=== PATIENT | male | born 1945 | race Caucasian/White ===

== ENCOUNTER 2016-07-19 23:59 | Inpatient (IN) | payer MEDICARE, BC ==
--- NOTE | ~2016-07-19 | HP ---
Unit #: [id number] #: [id number] Patient: MATILDE POST [id number] [address] [address] [id number] I MR#: [id number] NAME: MATILDE POST ROOM: 75254 Age: 71 Sex: M Admission Date: 07/20/2016 : 1945 Attending Physician: Kassandra Oliveros M.D. Primary Care Physician: No Primary Care Physician HISTORY AND PHYSICAL Of note, patient is usually admitted to this facility under the number of [id number]. HISTORY This 71-year-old male with COPD, PAF, chronic pain, and CAD is admitted for COPD exacerbation, suspected pneumonia, and sepsis. Patient states that two weeks ago he developed increasing shortness of breath with a cough productive of white sputum along with wheezing, fever, sweats, and chills. Apparently, he was quite confused yesterday and neighbors found him confused. He was brought to this emergency department late last evening extremely confused with a temperature of 102 degrees. He sounded quite congested on exam although chest x-ray does not show a definite pneumonia. He was treated with Solu-Medrol, Zosyn, vancomycin, tobramycin, and given 2 liters of saline along with Tylenol. Patient now is much more awake and alert. Of note, he does take high-dose morphine and currently is asking for pain medicine as he feels as if he is going through withdrawal. It is unsure when he was last admitted to a hospital. PAST MEDICAL HISTORY 1. Paroxysmal atrial fibrillation, chronically anticoagulated. 2. Chronic pain secondary to DJD and spinal stenosis on high-dose morphine followed by Dr. Rodgers. 3. Chronic lymphedema. 4. CAD, status post PTCA of the RCA 2003. Last echo revealed an ejection fraction of 55% to 60% with mild MR, right ventricular systolic pressures of 30-40 mmHg. Patient has a history of diastolic dysfunction. 5. B12 deficiency. 6. Admission 02/2015 for respiratory failure secondary to benzo overdose resulting in aspiration pneumonia. 7. AODM. 8. COPD on 2 liters of oxygen. 9. Obstructive sleep apnea on CPAP. 10. Polyps in the colon, which was snared. 11. EGD, 12/2012, revealing gastritis, mild duodenitis, and mild GERD with erosions at the gastroesophageal junction. 12. Cholecystectomy. 13. Appendectomy. ALLERGIES Latex. MEDICATIONS Unit #: [id number] #: [id number] Patient: MATILDE POST Home medications appear to be multiple. We are just getting a list back from the patient's pharmacy. FAMILY HISTORY CAD. SOCIAL HISTORY The patient lives alone. He stopped smoking 2 1/2 years ago. Does not drink alcohol. REVIEW OF SYSTEMS Notable for confusion, chronic pain, cough, fever, sweats, chills, shortness of breath, bronchospasm, PAF, CAD, COPD, chronic lymphedema, B12 deficiency, diabetes, polyps, gastritis, and above-mentioned surgeries. All other systems were reviewed and are otherwise negative. PHYSICAL EXAMINATION GENERAL APPEARANCE: Uncomfortable appearing, obese, 71-year-old male. VITAL SIGNS: Temperature 102, pulse 94, respirations 16, blood pressure 154/76, and O2 saturation currently is 96% on oxygen. HEENT: Eyes: PERRLA. Extraocular muscles are intact. Pharynx: Dry mucosal membranes. Poor dentition. NECK: Supple without adenopathy or thyromegaly. CHEST: Reveals rhonchi mainly. CARDIAC: Normal S1 and S2 without definite murmur. ABDOMEN: Bowels sounds are present. No hepatosplenomegaly, tenderness, or masses. EXTREMITIES: Dressings on both lower extremities distally. NEUROLOGIC: Patient is awake, alert, and oriented. His cranial nerves are intact. He has equal strength throughout except that he is weak in the left leg. DIAGNOSTIC STUDIES LABORATORY: Hematocrit 39.2, white blood count 19.1, and normal platelet count. SMA-12: Glucose 194, potassium 3.1, and alk phos 104. Lactic acid 2.4. Normal BNP. INR is 1.7. Cardiac markers are negative. Flu serology negative. Urinalysis is negative. IMAGING: Chest x-ray mainly notable for atelectasis. Head CT: No acute disease. Atrophy, small vessel ischemic disease, and sinus disease noted. CARDIOVASCULAR: EKG: Sinus rhythm with PACs, rate 95, and right bundle branch block. ASSESSMENT 1. Suspected pneumonia and sepsis with acute on chronic hypoxic respiratory failure. Of note, an ABG was drawn: pH 7.43, pCO2 40, pO2 131, and O2 saturation 99% on FIO2 of 50%. 2. COPD with exacerbation. 3. Confusion, likely related to toxic metabolic encephalopathy from current infection and medications. Patient is improved in terms of his mental status. 4. Paroxysmal atrial fibrillation anticoagulated, currently in a normal sinus rhythm. 5. Chronic pain on very high doses of narcotics. 6. Essential hypertension. Unit #: [id number] #: [id number] Patient: MATILDE POST 7. Obstructive sleep apnea. 8. AODM. 9. Gastritis. 10. Chronic lymphedema. 11. Hypokalemia. PLANS 1. Levaquin and Zosyn for now and will ask for a PA and lateral chest x-ray in the morning. Will write for steroids, DuoNeb, and Symbicort. 2. IV fluids. 3. Decrease pain medicines while acutely ill. 4. Verify home medicines. 5. Daily PT and INR. 6. Replace potassium and check magnesium. 7. Urine tox screen. 8. Further workup depending on above. Dictated by Kassandra Oliveros M.D. MARIKA/sacha TD: 07/20/2016 05:05 JOB #: [id number] HISTORY AND PHYSICAL Page 1 of 1 X Kassandra Oliveros MD X HISTORY AND PHYSICAL
--- NOTE | ~2016-07-19 | DS ---
Unit #: [id number] #: [id number] Patient: MATILDE POST [id number] [address] [place], [place] [address] [id number] I MR#: [id number] NAME: MATILDE POST ROOM: 339 Age: 71 Sex: M Admission Date: 07/20/2016 : 1945 Discharge Date: 07/22/2016 Attending Physician: Breana Goodwin M.D. DISCHARGE SUMMARY REASON FOR ADMISSION Acute respiratory failure. HISTORY OF PRESENT ILLNESS/HOSPITAL COURSE The patient is a 71-year-old male with underlying history of end-stage COPD on home O2, paroxysmal atrial fibrillation, chronic pain syndrome, coronary artery disease, who was admitted secondary to presumed pneumonia, acute respiratory failure as well as mental status change. Please see H and P for complete details. Through hospital course, the patient received IV Solu-Medrol, aerosol, as well as antibiotics in regard to his COPD exacerbation. He has shown improvement overall in his respiratory status. He has now returned back to his baseline 2 L via O2 nasal cannula. He states to me that he is not always the most compliant with his oxygen. He feels though he only uses oxygen whenever he feels as though he needs it. I reinforced with him that this is recommended to be 24/7. Initial chest x-ray raised the possibility of community-acquired pneumonia, however, given his clinical picture we performed a CT chest with noncontrast which only revealed atelectasis but no acute infiltrate was seen, therefore, his antibiotics IV were deescalated into p.o. He does have underlying history of chronic pain syndrome to which he takes morphine sulfate ER t.i.d. as well as morphine sulfate immediate release t.i.d. for breakthrough pain. His mental status change was felt to be secondary to polypharmacy. When I approach him in regard to the same and recommended that he consider decreasing these medications and/or discussing with his pain management physician about trying to change and/or de-escalate these medications. He became very agitated. He stated that he required them for his daily functioning and regardless of the recommendations that were made at time of discharge, he would revert back to his home dosage. At this point in time, he is otherwise clinically stable for discharge. As mentioned above, he is at baseline O2. He will be given prescriptions for Augmentin, prednisone, as well as Daliresp. At the time of discharge, he will be reverted back to his home medications. Recommendation once again has been made for him to be weaned off and/or medications including morphine to be reduced but I will defer that discussion between him and his pain management physician at the time of discharge. Unit #: [id number] #: [id number] Patient: MATILDE POST FINAL DISCHARGE DIAGNOSES 1. Acute hypoxic respiratory failure on baseline chronic respiratory failure, now improved. 2. End-stage chronic obstructive pulmonary disease, on home O2. 3. Obstructive sleep apnea with longstanding history of noncompliance. 4. Morbid obesity. 5. Chronic pain syndrome. 6. Opioid dependence. 7. Mental status change/temporary encephalopathy seen on admission likely secondary to polypharmacy and/or narcotic dependence. 8. Diabetes type 2 with hemoglobin A1c 7.7%. 9. Paroxysmal atrial fibrillation, on chronic anticoagulation with Coumadin. 10. Peripheral neuropathy likely secondary to poorly controlled diabetes. 11. Hyperlipidemia. FINAL DISCHARGE MEDICATIONS Augmentin 875 mg p.o. b.i.d., Imdur 60 mg p.o. daily, Daliresp 500 mcg p.o. daily, morphine sulfate 15 mg p.o. t.i.d. p.r.n. breakthrough pain, morphine sulfate ER 60 mg p.o. q.8, Zestril 10 mg p.o. daily, hydralazine 25 mg p.o. q.8, Lipitor 40 mg p.o. q.h.s., Cardizem 30 mg p.o. q.8, Norvasc 10 mg p.o. daily, Xanax 0.5 mg p.o. t.i.d. Home medication; no new prescription given, Zyrtec 10 mg p.o. daily, Neurontin 400 mg p.o. b.i.d., Coumadin 5 mg p.o. daily first dose on 07/23/2016, prednisone 40 mg p.o. daily, ProAir HFA two puffs q.6 p.r.n., Symbicort 160/4.5 two puffs b.i.d. FOLLOWUP The patient is to follow up with PCP in 3 to 5 days for repeat PT/INR as well as routine hospital followup. Dictated by... Alexis Herrera/mamie TD: 07/23/2016 05:51 JOB #: [id number] DISCHARGE SUMMARY Page 1 of 1 X Nasrin Jean Baptiste MD X DISCHARGE SUMMARY
--- NOTE | ~2016-07-19 | CT57 ---
[facility] A Service of [facility] RADIOLOGY TEXT RESULTS PATIENT: MATILDE POST LOCATION: [facility] : [birth year] UNIT #: [id number] AGE: [address]: Breana Goodwin MD SEX: M ORDER DR: [id number] [facility] [address]. [place], [place] [address] [id number] I MR#: [id number] Acc #: [id number] NAME: MATILDE POST : 1945 SEX: M STUDY DATE/TIME: 07/21/2016 12:39 [facility]: [facility] STUDY DESCRIPTION: CT Chest Wo Cont Attending Physician: Breana Goodwin M.D. Ordering Physician: Breana Goodwin M.D. Primary Care Physician: Primary Care Physician No MEDICAL IMAGING REPORT This report is preliminary unless electronic signature is present EXAM CT chest INDICATION Sepsis and respiratory failure. Shortness of air and cough for [address] of the thorax without contrast. Coronal and sagittal reconstructions were obtained. This CT exam was performed with one or more of the following radiation dose reduction techniques: automatic exposure control, adjustment of mA and/or kV according to patient size, and iterative reconstruction. COMPARISON Chest radiograph dated 07/20/2016. CT chest dated 04/14/2010. FINDINGS The heart is mildly enlarged. No pericardial or pleural effusion. There is moderate coronary artery calcifications. The thoracic aorta is normal in caliber. There is an anterior paratracheal lymph node measuring 1.0 cm in short axis. There are some linear airspace opacities in the right lung base and the left lung base. This is most consistent with atelectasis. No dense consolidation. Central airways are patent. Limited images of the upper abdomen were obtained. There is no acute findings. IMPRESSION Mild linear airspace opacities in both lung bases most consistent with atelectasis. [facility] A Service of [facility] RADIOLOGY TEXT RESULTS PATIENT: MATILDE POST LOCATION: [facility] : [birth year] UNIT #: [id number] AGE: [address]: Breana Goodwin MD SEX: M ORDER DR: Dictated by... Alexei Brower M.D. THIS IS AN ELECTRONICALLY VERIFIED REPORT Alxeei Brower M.D. at 07/22/2016 10:44 AM Geeta TD: 07/22/2016 09:20 JOB #: [id number] MEDICAL IMAGING REPORT Page 1 of 1 COPY
--- NOTE | ~2016-07-19 | EKG ---
PATIENT: MATILDE POST UNIT #: [id number] Ventricular Rate: 95 BPM Atrial Rate: 95 BPM P-R Interval: 208 ms QRS Duration: 150 ms Q-T Interval: 382 ms QTC Calculation(Bezet): 480 ms P Jackson: 57 degrees Calculated R Jackson: 0 degrees Calculated T Jackson: 18 degrees Diagnosis Line: Sinus rhythm with Premature atrial complexes Diagnosis Line: Right bundle branch block with repolarization Diagnosis Line: abnormality Cannot rule out Posterior infarct Diagnosis Line: Abnormal ECG Diagnosis Line: No previous ECGs available Diagnosis Line: Confirmed by JOVAN ECHOLS MD ([id number]) on 07/20/2016 Diagnosis Line: 4:38:14 PM INTERPRETING MD: KINZA YANG
--- NOTE | ~2016-07-19 | CT71 ---
[facility] A Service of [facility] RADIOLOGY TEXT RESULTS PATIENT: MATILDE POST LOCATION: [facility] 339-01 : [birth year] UNIT #: [id number] AGE: [address]: Breana Goodwin MD SEX: M ORDER DR: [id number] [id number] [facility]. [place], [place] [address] [id number] I MR#: [id number] Acc #: [id number] NAME: MATILDE POST : 1945 SEX: M STUDY DATE/TIME: 07/20/2016 0:22 UNIT: [facility] ROOM: 86582 STUDY DESCRIPTION: CT Head Wo Contrast Attending Physician: Breana Goodwin M.D. Ordering Physician: Noemi Hester M.D. Primary Care Physician: Primary Care Physician No MEDICAL IMAGING REPORT This report is preliminary unless electronic signature is present EXAM Head CT no contrast 07/20/2016 INDICATION Short of air for 3 days, cough for days, confusion, altered mental status, found down, alcohol on board. TECHNIQUE Noncontrast CT brain was performed. This CT examination was performed with one or more of the following radiation dose reduction techniques: automatic exposure control, adjustment of mA and/or kV according to patient size, and iterative reconstruction. COMPARISON None. FINDINGS There is motion degradation. Images were repeated. This was the best study possible. There is generalized atrophy. Sulci and ventricles otherwise unremarkable. No midline shift. No evidence of acute intracranial hemorrhage. There is no mass, mass effect or edema to suggest acute infarct and no extraaxial fluid collections are present. There is cerebellar atrophy slightly out of proportion to generalized cerebral atrophy and there are chronic ischemic changes in the periventricular white matter. Globes intact. Bones intact. There is chronic-appearing ethmoid and maxillary sinus disease. IMPRESSION 1. No clearly acute intracranial process. No evidence of acute intracranial hemorrhage. 2. Atrophy and chronic ischemic changes. 3. Multifocal sinus disease that appears chronic. [facility] A Service [facility] RADIOLOGY TEXT RESULTS PATIENT: MATILDE POST LOCATION: [facility] 339-01 : [birth year] UNIT #: [id number] AGE: [address]: Breana Goodwin MD SEX: M ORDER DR: Dictated by... Johnnie Salazar M.D. THIS IS AN ELECTRONICALLY VERIFIED REPORT Johnnie Salazar M.D. at 07/23/2016 9:12 AM AURA/sandoval TD: 07/20/2016 08:12 JOB #: [id number] MEDICAL IMAGING REPORT Page 1 of 1 COPY
--- NOTE | ~2016-07-19 | CR72 ---
[facility] A Service of [facility] RADIOLOGY TEXT RESULTS PATIENT: MATILDE POST LOCATION: [facility] 339-01 : [birth year] UNIT #: [id number] AGE: [address]: Breana Goodwin MD SEX: M ORDER DR: [id number] [facility] [address] [facility]. [place], [place] [address] [id number] I MR#: [id number] Acc #: [id number] NAME: MATILDE POST : 1945 SEX: M STUDY DATE/TIME: 07/19/2016 21:30 [facility] [address]67 STUDY DESCRIPTION: CR Chest Single View Portable Attending Physician: Breana Goodwin M.D. Ordering Physician: Noemi Hester M.D. Primary Care Physician: Primary Care Physician No MEDICAL IMAGING REPORT This report is preliminary unless electronic signature is present EXAM Portable AP view of the chest. COMPARISON None. INDICATIONS 68-year-old male with dyspnea and hypoxia as well as weakness today. FINDINGS Exam is limited by low lung volumes and rightward patient rotation. No convincing evidence of pneumothorax. There are diffuse interstitial opacities throughout the lungs favoring bronchovascular crowding. However in the right lung base, there are more confluent opacities which again are actually favored to represent atelectasis. There may be small left pleural effusion. Alternately this could represent prominent breast and cardiac shadow. IMPRESSION 1. Low lung volumes with diffuse interstitial opacities throughout the lungs favoring bronchovascular crowding with more focal opacity seen in the right lung base favored to represent atelectasis. Clinical correlation recommended. 2. There is hazy attenuation over the left lateral lung base favored represent combination of cardiac and breast shadow. Small left pleural effusion cannot be excluded. Dictated by... Ty Bauer M.D. THIS IS AN ELECTRONICALLY VERIFIED REPORT Ty Bauer M.D. at 07/23/2016 8:06 PM [facility] A Service of [facility] RADIOLOGY TEXT RESULTS PATIENT: MATILDE POST LOCATION: [facility] 339-01 : [birth year] UNIT #: [id number] AGE: [address]: Breana Goodwin MD SEX: M ORDER DR: Miranda TD: 07/20/2016 07:04 JOB #: [id number] MEDICAL IMAGING REPORT Page 1 of 1 COPY
--- NOTE | ~2016-07-19 | BMI ---
[facility] Nutrition Therapy DATE: 07/21/16 Patient: DEBORAH SEJAL Physician: SHELBY Address: [address] Room/Bed: [address] [place] [address], Zip: [place] [address] Admit Date: 07/20/16 Date of : [birth year] Height: 5 10 Weight: 283 128.6 HIGH BMI NOTE: ANTHROPOMETRICS: HT: 70" WT: 127.2 KG BMI: 40.2 INTERVENTION: 1. HH/CC DIET RECOMMENDATIONS: 1. CONTINUE CURRENT DIET IN ORDER TO PROMOTE GRADUAL WEIGHT LOSS TOWARDS A HEALTHY BMI. Respectfully, SANDRA ABEBE RD, LD [facility] cc: client file
--- NOTE | ~2016-07-19 | CR63 ---
[facility] A Service of [facility] RADIOLOGY TEXT RESULTS PATIENT: MATILDE POST LOCATION: [facility] 339-01 : [birth year] UNIT #: [id number] AGE: [address]: Breana Goodwin MD SEX: M ORDER DR: [id number] [facility] [address] [facility]. [place], [place] [address] [id number] I MR#: [id number] Acc #: [id number] NAME: MATILDE POST : 1945 SEX: M STUDY DATE/TIME: 07/20/2016 7:54 UNIT: A U ROOM: [facility] STUDY DESCRIPTION: CR Chest 2 View Attending Physician: Breana Goodwin M.D. Ordering Physician: Kassandra Oliveros M.D. Primary Care Physician: Primary Care Physician No MEDICAL IMAGING REPORT This report is preliminary unless electronic signature is present EXAM Chest PA and lateral, 07/20/2016 HISTORY Cough, chest congestion and shortness of breath today with syncope. Benign essential hypertension and diabetes, COPD exacerbation. FINDINGS The cardiac and mediastinal structures are stable compared with 07/20/2016 at 03:41 a.m. There is poor inspiratory result with bibasilar atelectasis. Right arm approach PICC line is unchanged. The upper lungs are clear. There are no pleural effusions. IMPRESSION No active pulmonary disease. Dictated by... Zhou Weber M.D. THIS IS AN ELECTRONICALLY VERIFIED REPORT Zhou Weber M.D. at 07/20/2016 10:52 AM SILAS/josé miguel TD: 07/20/2016 10:05 JOB #: [id number] MEDICAL IMAGING REPORT Page 1 of 1 COPY
--- NOTE | ~2016-07-19 | CR72 ---
[facility] A Service of [facility] RADIOLOGY TEXT RESULTS PATIENT: MATILDE POST LOCATION: [place] [address]- : [birth year] UNIT #: [id number] AGE: [address]: Breana Goodwin MD SEX: M ORDER DR: [id number] [facility] [address] [facility]. [place], [place] [address] [id number] I MR#: [id number] Acc #: [id number] NAME: MATILDE POST : 1945 SEX: M STUDY DATE/TIME: 07/20/2016 3:41 [facility] STUDY DESCRIPTION: CR Chest Single View Portable Attending Physician: Breana Goodwin M.D. Ordering Physician: Kassandra Oliveros M.D. Primary Care Physician: Primary Care Physician No MEDICAL IMAGING REPORT This report is preliminary unless electronic signature is present EXAM Frontal chest 07/20/2016 INDICATION PICC line placement, sepsis, respiratory failure. TECHNIQUE Frontal chest compared with 07/19/2016. FINDINGS New right-sided PICC line tip at the distal SVC level. No pneumothorax. Cardiac silhouette borderline in size and stable. Lung volumes are low. Bibasilar atelectasis or infiltrates persist. Probable trace to small effusions. IMPRESSION 1. New right-sided PICC line tip at the distal SVC level. No pneumothorax. 2. No other significant interval change from 07/19/2016 at 2130 hours. Dictated by... Johnnie Salazar M.D. THIS IS AN ELECTRONICALLY VERIFIED REPORT Johnnie Salazar M.D. at 07/23/2016 9:13 AM AURA/sandoval TD: 07/20/2016 08:54 JOB #: [id number] MEDICAL IMAGING REPORT Page 1 of 1 COPY
[2016-07-19 21:20] LABS: ARTERIAL BLOOD GAS CARBOXY HB 0.2 %sat (0.0-9.0); ARTERIAL BLOOD GAS HCO3 26.7 mmol/L; ARTERIAL BLOOD GAS pH 7.433 (7.350-7.450)
[2016-07-19 21:21] LABS: ARTERIAL BLOOD GAS ALLEN TEST NORMAL; ARTERIAL BLOOD GAS ART SITE RIGHT RADIAL; ARTERIAL DRAW? YES
[2016-07-19 21:34] LABS: URINE SOURCE CLEAN CATCH
[2016-07-19 21:42] LABS: BASOPHIL# 0.1 X10e3 (0-0.3); BASOPHIL% 0.4 % (0-2.5); EOSINOPHIL# 0.1 X10e3 (0-0.7); EOSINOPHIL% 0.5 % (0.0-7.0); HEMATOCRIT 39.2 % (38.0-50.0); HEMOGLOBIN 12.8 gm/dL (13.0-16.0); LYMPHOCYTE% 5.2 % (17.0-45.0); MEAN CELL VOLUME 84.5 FL (83-96); MEAN CORPUSCULAR HEMOGLOBIN 27.6 PG (28-34); MEAN CORPUSCULAR HGB CONC 32.6 g/dL (30-36); MEAN PLATELET VOLUME 8.2 FL (6.5-11.5); MONOCYTE# 0.8 X10e3 (0-1.0); MONOCYTE% 4.1 % (3.0-12.0); NEUTROPHIL# 17.1 X10e3 (1.5-7.1); NEUTROPHIL% 89.8 % (40-75); PLATELET COUNT 389 X10e3 (140-420); RED BLOOD COUNT 4.64 X10e (3.90-5.60); RED CELL DISTRIBUTION WIDTH 15.2 % (11.0-15.5); WHITE BLOOD COUNT 19.1 X10e3 (4.0-10.5)
[2016-07-19 21:43] LABS: DIFF IND YES
[2016-07-19 21:45] LABS: URINE APPEARANCE CLEAR; URINE BILIRUBIN NEG (NEG); URINE BLOOD NEG (NEG); URINE COLOR YELLOW; URINE GLUCOSE NEG (NEG); URINE KETONE NEG (NEG); URINE LEUKOCYTE ESTERASE NEG (NEG); URINE NITRATE NEG (NEG); URINE PROTEIN NEG (NEG); URINE SPECIFIC GRAVITY 1.013 (1.003-1.035); URINE UROBILINOGEN 0.2 MG/DL (NEG)
[2016-07-19 21:45] LABS: POC - CKMB <1.0 ng/mL (0.0-7.9); POC - TROPONIN <0.05 ng/mL (<=0.05)
[2016-07-19 21:50] LABS: CULTURE INDICATED? NO
[2016-07-19 21:50] LABS: INR 1.7; PROTHROMBIN TIME (PATIENT) 18.6 SECONDS (9.6-11.5)
[2016-07-19 21:57] LABS: INFLUENZA A NEG (NEG); INFLUENZA B NEG (NEG)
[2016-07-19 22:05] LABS: BILIRUBIN, DIRECT 0.1 mg/dL (0.0-0.2); BILIRUBIN,INDIRECT 0.3 mg/dL (0.0-0.9); BILIRUBIN,TOTAL 0.4 mg/dL (0.2-2.0); CALCIUM SERUM 8.9 mg/dL (8.4-10.2); GLOM FILT RATE Estimated 77.5 mL/min (>60); POTASSIUM 3.1 mmol/L (3.5-5.1); PROTEIN TOTAL SERUM 7.9 g/dL (6.0-8.3)
[2016-07-19 22:08] LABS: PLATELET ESTIMATE NORMAL (NORMAL); SMUDGE CELLS 16 /100
[2016-07-19 22:09] LABS: RBC NORMAL YES
[2016-07-19 23:22] LABS: POC - CKMB <1.0 ng/mL (0.0-7.9); POC - TROPONIN <0.05 ng/mL (<=0.05)
[~2016-07-19 23:59] MED LIST: ADVAIR 250-501 EACH INH; ALPRAZOLAM PO; ALPRAZOLAM XR0.5 MG PO; AMLODIPINE BESYL5 MG PO; AMOXICILLIN875 MG PO; ANDROGEL2.5 GM TOP; ASPIRIN81 M2 PO; ASPIRIN81 MG PO; AUGMENTIN875 MG PO; AVINZA60 MG PO; BACTRIM DS TABL1 TA1 PO; BETAPACE PO; BETAPACE80 MG PO; CATAFLAM50 MG PO; CATAPRES0.1 MG PO; CIPRO PO; CLONIDINE HCL0.1 M1 PO; CLONIDINE HCL0.1 MG PO; CLONIDINE PO; COMBIVENT U/D3 M2 INH; COUMADIN10 MG PO; COUMADIN4 MG PO; COUMADIN5 MG PO; COUMADIN7.5 MG PO; CYANOCOBALAM1000 MCG PO; CYMBALTA PO; DARVOCET-N 1001 TAB PO; DEPAKOTE (UD)250 M1 PO; DIVALPROEX SOD500 M1 PO; DIVALPROEX SOD500 M2 PO; FENTANYL TOP; FLAGYL PO; FLORASTOR250 M1 PO; FUROSEMIDE40 MG PO; GABAPENTIN300 MG PO; GABAPENTIN400 M2 PO; GABAPENTIN400 MG PO; GLUCOPHAGE500 M1 PO; GLUCOPHAGE500 MG PO; HYDRALAZINE HCL25 MG PO; IMDUR-ER30 M1 PO; IMDUR-ER60 M1 PO; IMDUR-ER60 M3 PO; IPRAT-ALBUT 0.5-3 ML INH; K-DUR10 MEQ PO; K-DUR20 ME1 PO; KLONOPIN0.25 MG/TA PO; KRISTALOSE10 GM PO; LASIX20 MG PO; LEVAQUIN PO; LEVAQUIN750 M1 PO; LEVAQUIN750 MG PO; LISINOPRIL PO; LISINOPRIL-HCTZ1 T14 PO; LISINOPRIL-HCTZ1 T15 PO; LOPRESSOR PO; LOPRESSOR100 MG PO; METFORMIN HCL1000 M1 PO; METFORMIN HCL500 M1 PO; METFORMIN PO; METOPROLOL SUC100 MG PO; METOPROLOL SUCC25 MG PO; METOPROLOL SUCC50 MG PO; MIRALAX255 GM PO; MIRTAZAPINE45 MG PO; MORPHINE IR PO; MORPHINE SULFAT15 M1 PO; MORPHINE SULFAT15 MG PO; MORPHINE SULFAT60 M1 PO; MORPHINE SULFAT60 M3 PO; MORPHINE SULFAT60 M4 PO; MORPHINE SULFAT60 MG PO; MS CONTIN PO; MS CONTIN60 MG PO; NEXIUM PO; NITROGLYGERIN0.4 MG SL; NITROSTAT0.4 MG SL; NORVASC PO; NOVOLIN R100 UNITS/; OSPHENA60 MG PO; PANTOPRAZOLE SO40 MG PO; PERCOCET10 PO; PHENERGAN PO; PREDNISONE PO; PREDNISONE10 MG PO; PRINIVIL20 M1 PO; PROTONIX PO; REGLAN PO; SEROQUEL PO; SIMVASTATIN20 MG PO; SIMVASTATIN40 MG PO; SOTALOL AF80 M1 PO; SOTALOL120 MG PO; SOTALOL160 MG PO; SYMBICORT INH; TOPROL XL PO; TYLOX 5/500 CAP1 CAP PO; VIBRAMYCIN100 M1 IV; VIBRAMYCIN100 M1 PO; VITAMIN B122500 MCG PO; XANAX0.5 M1 PO; ZANTAC PO; ZESTORETIC 20/11 TAB PO; ZESTORETIC 20/21 TAB PO; ZIAGEN300 M1; ZOCOR PO
[2016-07-20] MEDS ORDERED: XANAX0.5 M1 PO (02:32)
[2016-07-20] MEDS ORDERED: AMLODIPINE BESY10 MG PO (02:33)
[2016-07-20] MEDS ORDERED: LIPITOR40 MG PO (02:34)
[2016-07-20] MEDS ORDERED: ALLERGY RELIEF10 M6 PO (02:35)
[2016-07-20] MEDS ORDERED: KLONOPIN0.5 MG PO (02:37)
[2016-07-20] MEDS ORDERED: DILTIAZEM HCL30 MG PO (02:38)
[2016-07-20] MEDS ORDERED: GABAPENTIN400 M2 PO (02:40)
[2016-07-20] MEDS ORDERED: HYDRALAZINE HCL25 MG PO (02:40)
[2016-07-20] MEDS ORDERED: PRINIVIL10 MG PO (02:42)
[2016-07-20] MEDS ORDERED: IMDUR-ER60 M2 PO (02:42)
[2016-07-20] MEDS ORDERED: MORPHINE SULFAT60 M1 PO (02:45)
[2016-07-20] MEDS ORDERED: PROAIR HFA8.5 GM INH (02:48)
[2016-07-20] MEDS ORDERED: MSIR15 MG PO (02:52)
[2016-07-20 06:01] LABS: AMPHETAMINE NEG (NEG); BARBITURATES NEG (NEG); BENZODIAZEPINES POS (NEG); COCAINE NEG (NEG); MARIJUANA NEG (NEG); OPIATES POS (NEG); TRICYCLIC ANTIDEPRESSANTS NEG (NEG); U METHADONE NEG (NEG)
[2016-07-20 10:53] LABS: BASOPHIL% 0.2 % (0-2.5); HEMATOCRIT 36.2 % (38.0-50.0); HEMOGLOBIN 11.3 gm/dL (13.0-16.0); LYMPHOCYTE# 1.3 X10e3 (1.0-3.5); LYMPHOCYTE% 4.6 % (17.0-45.0); MEAN CELL VOLUME 86.8 FL (83-96); MEAN CORPUSCULAR HEMOGLOBIN 27.1 PG (28-34); MEAN CORPUSCULAR HGB CONC 31.3 g/dL (30-36); MEAN PLATELET VOLUME 8.6 FL (6.5-11.5); MONOCYTE# 0.4 X10e3 (0-1.0); MONOCYTE% 1.2 % (3.0-12.0); NEUTROPHIL# 27.2 X10e3 (1.5-7.1); PLATELET COUNT 295 X10e3 (140-420); RED BLOOD COUNT 4.17 X10e (3.90-5.60); RED CELL DISTRIBUTION WIDTH 15.4 % (11.0-15.5)
[2016-07-20 10:54] LABS: DIFF IND NO
[2016-07-20 11:44] LABS: CALCIUM SERUM 8.2 mg/dL (8.4-10.2); CREATININE SERUM 0.9 mg/dL (0.6-1.4); GLOM FILT RATE Estimated 86.2 mL/min (>60); MAGNESIUM 1.6 mg/dL (1.6-3.0); POTASSIUM 3.2 mmol/L (3.5-5.1)
[2016-07-21 09:18] LABS: HEMATOCRIT 35.1 % (38.0-50.0); HEMOGLOBIN 11.1 gm/dL (13.0-16.0); MEAN CORPUSCULAR HEMOGLOBIN 27.2 PG (28-34); MEAN CORPUSCULAR HGB CONC 31.6 g/dL (30-36); MEAN PLATELET VOLUME 8.8 FL (6.5-11.5); RED BLOOD COUNT 4.07 X10e (3.90-5.60); RED CELL DISTRIBUTION WIDTH 15.5 % (11.0-15.5); WHITE BLOOD COUNT 29.4 X10e3 (4.0-10.5)
[2016-07-21 09:37] LABS: INR 3.2; PROTHROMBIN TIME (PATIENT) 35.1 SECONDS (9.6-11.5)
[2016-07-21 09:53] LABS: BUN/CREATININE RATIO 28.57; CALCIUM SERUM 9.2 mg/dL (8.4-10.2); CREATININE SERUM 0.7 mg/dL (0.6-1.4); GLOM FILT RATE Estimated 95.7 mL/min (>60); MAGNESIUM 1.8 mg/dL (1.6-3.0)
[2016-07-22 06:47] LABS: HEMATOCRIT 32.3 % (38.0-50.0); HEMOGLOBIN 10.3 gm/dL (13.0-16.0); MEAN CELL VOLUME 85.2 FL (83-96); MEAN CORPUSCULAR HEMOGLOBIN 27.2 PG (28-34); MEAN PLATELET VOLUME 8.6 FL (6.5-11.5); RED BLOOD COUNT 3.79 X10e (3.90-5.60); WHITE BLOOD COUNT 22.6 X10e3 (4.0-10.5)
[2016-07-22 06:54] LABS: INR 4.3; PROTHROMBIN TIME (PATIENT) 47.8 SECONDS (9.6-11.5)
[2016-07-22 07:16] LABS: BUN/CREATININE RATIO 27.5; CREATININE SERUM 0.8 mg/dL (0.6-1.4); GLOM FILT RATE Estimated 90.5 mL/min (>60); POTASSIUM 3.9 mmol/L (3.5-5.1)
[2016-07-22] MEDS ORDERED: PREDNISONE PO (13:04)
[2016-07-22] MEDS ORDERED: COUMADIN5 MG PO (13:06)
[2016-07-22] MEDS ORDERED: AUGMENTIN875 MG PO (13:08)
[2016-07-22] MEDS ORDERED: DALIRESP500 MCG PO (13:08)
[2016-07-22] MEDS ORDERED: AMARYL2 MG PO (13:08)
[2016-07-22] MEDS ORDERED: SYMBICORT INH (13:09)
== END 2016-07-22 14:09 | disposition home or self-care (01) | DRG 189 ==
LOC: CED 23:59 → CEDOF 07-20 01:30 → C3A PCU 07-20 09:38
PROVIDERS: Family Medicine; Internal Medicine; Student in an Organized Health Care Education/Training Program
PROC: 02HV33Z Insertion of Infusion Device into Superior Vena Cava, Percutaneous Approach (ICD-10-PCS; principal; 2016-07-20)
DX: J96.21 Acute and chronic respiratory failure with hypoxia (principal); G92 Toxic encephalopathy; Z99.81 Dependence on supplemental oxygen; E11.42 Type 2 diabetes mellitus with diabetic polyneuropathy; J44.1 Chronic obstructive pulmonary disease with (acute) exacerbation; F11.20 Opioid dependence, uncomplicated; J98.11 Atelectasis; I48.0 Paroxysmal atrial fibrillation; I25.10 Atherosclerotic heart disease of native coronary artery without angina pectoris; Z79.01 Long term (current) use of anticoagulants; Z98.61 Coronary angioplasty status; G47.33 Obstructive sleep apnea (adult) (pediatric); Z86.010 Personal history of colon polyps; Z90.49 Acquired absence of other specified parts of digestive tract; Z91.040 Latex allergy status; Z87.891 Personal history of nicotine dependence; K29.70 Gastritis, unspecified, without bleeding; I89.0 Lymphedema, not elsewhere classified; E87.6 Hypokalemia; M62.3 Immobility syndrome (paraplegic); G89.4 Chronic pain syndrome; Z91.14 Patient's other noncompliance with medication regimen; E66.01 Morbid (severe) obesity due to excess calories; E78.5 Hyperlipidemia, unspecified
CPT/HCPCS: 36415; 36600; 51702; 70450; 71010; 71020; 71250; 80048; 80076; 80307; 81003; 82553; 82803; 82947; 83036; 83605; 83735; 83880; 84484; 85025; 85027; 85610; 85730; 87040; 87070; 87205; 87804; 93005; 94640; 94660; 94664; 94760; 94761; 96361; 96365; 96375; 97116; 97162; 99285; G8978-GP; G8979-GP; G8980-GP; J1815; J1956; J2405; J2543; J2920; J2930; J3260; J3370

== ENCOUNTER 2016-07-30 05:18 | Inpatient (IN) | payer MEDICARE, BC ==
--- NOTE | ~2016-07-30 | CO ---
Unit #: [id number] #: [id number] Patient: MATILDE POST [id number] [address] [place], [place] [address] [id number] I MR#: [id number] NAME: MATILDE POST. ROOM: 555 Age: 71 Sex: M Admission Date: 07/30/2016 : 1945 Attending Physician: Nasrin Jean Baptiste M.D. CONSULTATION REPORT HISTORY OF PRESENT ILLNESS Mr. Post is a 71-year-old white male with a history of COPD, chronic respiratory failure, on home O2; RANDY, on CPAP; paroxysmal atrial fib, who presented because of increased weakness. He said he was home. He may have had some chills. He had some sweating. He has had nausea, vomiting and diarrhea. He felt quite weak and dizzy and came to the emergency room. He denied any cough or purulent sputum or chest pain. In the emergency room, his room air sat was recorded at 92%. His blood pressure was 129/93, respiratory rate was 19, pulse was 143, temperature was 98.2. He was noted to be in atrial fibrillation, rapid ventricular response. He was given Cardizem p.o., Zofran and started on Cardizem drip, IV fluids. He was given vancomycin, Zosyn, and tobramycin. His chest x-ray showed no acute infiltrate, probably some chronic atelectasis in the bases[place] [id number], hematocrit was 42.5, platelet count was normal. Urinalysis revealed 1+ leukocyte esterase, glucose 250, no blood. There were 10 to 25 white blood cells per high-power field. Culture was sent. We were asked to see for possible pneumonia and sepsis. PAST MEDICAL HISTORY Paroxysmal atrial fibrillation, chronically anticoagulated; chronic pain due to DJD, spinal stenosis, on high-dose morphine, followed by Dr. Rodgers; chronic lymphedema, primarily on the left; coronary artery disease, status post PTCA in 2003 with right coronary, normal ejection fraction, some diastolic dysfunction; history of COPD with chronic respiratory failure, maintained on home O2 at 2 L; history of RANDY, maintained on CPAP; history of adult-onset diabetes mellitus; history of colonic polyps, status post removal. PAST SURGICAL HISTORY Cholecystectomy, appendectomy. ALLERGIES Latex. HOME MEDICATIONS Listed include Keppra, Protonix, Nitrostat, Coumadin, Combivent, Xanax, Lipitor, diltiazem, Neurontin, hydralazine, morphine sulfate ER, ProAir, Daliresp, Amaryl, Symbicort, Lasix, sotalol, Imdur. SOCIAL HISTORY Lives alone. Stopped smoking 2-1/2 years ago. No alcohol. FAMILY HISTORY Coronary artery disease. Unit #: [id number] #: [id number] Patient: MATILDE POST REVIEW OF SYSTEMS Notable for HPI, 10-point systems otherwise negative. PHYSICAL EXAMINATION GENERAL: Obese white male, in no distress. Can speak in complete sentences. Not using accessory muscles. VITAL SIGNS: Blood pressure is 134/89, pulse is 99, respiratory rate 12, temperature 97.7. HEENT: Normocephalic and atraumatic. Pupils are equal, round, and reactive. Sclerae nonicteric. Nasal passages patent. Posterior pharynx clear. Mucous membranes moist. Mallampati 2 to 3. NECK: Supple. Trachea midline. No cervical or supraclavicular lymphadenopathy. LUNGS: Fairly clear bilaterally with slightly prolonged respiratory phase. Currently, no wheezing. CARDIAC: Irregular rate and rhythm. Could not appreciate murmur, rub, or gallop. ABDOMEN: Mildly tender. No guarding, no rebound, no rigidity. Soft. EXTREMITIES: With lymphedema on the left, much less so on the right with 1+ edema. SKIN: Warm and dry. PSYCHIATRIC: Affect calm. NEUROLOGIC: Awake, alert, and oriented x3. Cranial nerves grossly intact. Muscle strength symmetric bilaterally. DIAGNOSTIC STUDIES LABORATORY RESULTS: As noted. IMPRESSION 1. Chronic obstructive pulmonary disease with chronic respiratory failure, on home O2, stable. 2. Obstructive sleep apnea, on continuous positive airway pressure. 3. Leukocytosis with diarrhea, nausea and vomiting, possibly Clostridium difficile colitis. 4. Paroxysmal atrial fibrillation with rapid ventricular response. 5. Chronic lymphedema. 6. Coronary artery disease. PLAN I doubt there does not appear to be any pneumonia causing his symptoms. I am concerned about the possibility of C diff colitis given nausea, vomiting, diarrhea and elevated white blood cell count. We will check stool for C diff, begin empiric Flagyl. Continue current pulmonary medicines and oxygen. He can wear his CPAP when he sleeps. We will also check procalcitonin levels. Further recommendations pending this. Dictated by... Alexis Coreas/mamie TD: 07/31/2016 06:12 JOB #: [id number] Unit #: [id number] #: [id number] Patient: MATILDE POST CONSULTATION REPORT Page 1 of 1 X Tony Benito MD CONSULTATION REPORT
--- NOTE | ~2016-07-30 | CR72 ---
[facility] A Service of [facility] RADIOLOGY TEXT RESULTS PATIENT: MATILDE POST LOCATION: [facility] [id number] : 46 UNIT #: [id number] AGE: [address]: Nasrin Jean Baptiste MD SEX: M ORDER DR: [id number] [facility] [address] [place], [place] [address] [id number] I MR#: [id number] Acc #: [id number] NAME: MATILDE POST : 1945 SEX: M STUDY DATE/TIME: 07/31/2016 05:27 UNIT: [facility] ROOM: [facility] STUDY DESCRIPTION: CR Chest Single View Portable Attending Physician: Nasrin Jean Baptiste M.D. Ordering Physician: Nasrin Jean Baptiste M.D. Primary Care Physician: Primary Care Physician No MEDICAL IMAGING REPORT This report is preliminary unless electronic signature is present EXAM Portable chest 07/31/2016 at 05:27 INDICATION Atrial fibrillation, shortness of air, nausea, weakness. FINDINGS AP portable chest is compared with 07/30/2016. Right arm PICC in the SVC. There is slight interval increase in infiltrate at the left base worrisome for pneumonia. The exam is otherwise not significantly changed. No pneumothorax. Dictated by... Panda Greene Jr., M.D. THIS IS AN ELECTRONICALLY VERIFIED REPORT Panda Greene Jr., M.D. at 07/31/2016 10:40 PM LINCOLN/sandoval TD: 07/31/2016 07:39 JOB #: [id number] MEDICAL IMAGING REPORT Page 1 of 1 COPY
--- NOTE | ~2016-07-30 | EKG ---
PATIENT: MATILDE POST UNIT #: [id number] Ventricular Rate: 64 BPM Atrial Rate: 64 BPM P-R Interval: 206 ms QRS Duration: 140 ms Q-T Interval: 446 ms QTC Calculation(Bezet): 460 ms P [place]: 60 degrees Calculated R [place]: -3 degrees Calculated T [place]: 13 degrees Diagnosis Line: Normal sinus rhythm Diagnosis Line: Right bundle branch block Diagnosis Line: Abnormal ECG Diagnosis Line: When compared with ECG of 30-JUL-2016 22:20, Diagnosis Line: (unconfirmed) Diagnosis Line: Sinus rhythm has replaced Atrial fibrillation Diagnosis Line: Vent. rate has decreased BY 85 BPM Diagnosis Line: T wave inversion less evident in Anterior leads Diagnosis Line: Confirmed by NADEGE STILES MD ([id number]) on 07/31/2016 Diagnosis Line: 10:14:00 PM INTERPRETING MD: GO YANG
--- NOTE | ~2016-07-30 | EKG ---
PATIENT: MATILDE POST UNIT #: [id number] Ventricular Rate: 149 BPM Atrial Rate: 147 BPM QRS Duration: 144 ms Q-T Interval: 330 ms QTC Calculation(Bezet): 519 ms Calculated R [place]: 44 degrees Calculated T [place]: -19 degrees Diagnosis Line: Atrial fibrillation with rapid ventricular Diagnosis Line: response Diagnosis Line: Right bundle branch block Diagnosis Line: Abnormal ECG Diagnosis Line: When compared with ECG of 08-SEP-2015 01:34, Diagnosis Line: Atrial fibrillation has replaced Sinus rhythm Diagnosis Line: Vent. rate has increased BY 85 BPM Diagnosis Line: Right bundle branch block is now Present Diagnosis Line: Confirmed by NADEGE STILES MD ([id number]) on 07/30/2016 Diagnosis Line: 10:49:45 PM INTERPRETING MD: GO YANG
--- NOTE | ~2016-07-30 | EKG ---
PATIENT: MATILDE POST UNIT #: [id number] Ventricular Rate: 58 BPM Atrial Rate: 58 BPM P-R Interval: 230 ms QRS Duration: 140 ms Q-T Interval: 476 ms QTC Calculation(Bezet): 467 ms P [place]: 93 degrees Calculated R [place]: 20 degrees Calculated T [place]: 20 degrees Diagnosis Line: Sinus bradycardia with 1st degree A-V block Diagnosis Line: Right bundle branch block Diagnosis Line: Abnormal ECG Diagnosis Line: When compared with ECG of 31-JUL-2016 04:45, Diagnosis Line: (unconfirmed) Diagnosis Line: No significant change was found Diagnosis Line: Confirmed by NADEGE STILES MD ([id number]) on 07/31/2016 Diagnosis Line: 10:39:18 PM INTERPRETING MD: GO YANG
--- NOTE | ~2016-07-30 | HP ---
Unit #: [id number] #: [id number] Patient: AMTILDE POST [id number] [address] [address] [id number] I MR#: [id number] NAME: MATILDE POST ROOM: 555 Age: 71 Sex: M Admission Date: 07/30/2016 : 1945 Attending Physician: Nasrin Jean Baptiste M.D. Primary Care Physician: No Primary Care Physician HISTORY AND PHYSICAL REASON FOR ADMISSION 1. Acute respiratory failure. 2. Weakness. 3. A-fib with rapid ventricular response. HISTORY OF PRESENT ILLNESS The patient is a 71-year-old male with an underlying history of COPD, end stage, on home O2 at 2 L, paroxysmal atrial fibrillation, chronic pain syndrome on chronic narcotic medications, coronary artery disease. Last cardiac catheterization I believe 2013 who presented with a two to three day history of profound weakness as well as difficulty with ambulation secondary to increased shortness of breath. He was recently admitted and discharged from our particular hospital from 07/20 to 07/22/2016 secondary to acute respiratory failure at that time. At time of discharge, he was given prescriptions for Augmentin and prednisone and asked to maintain his oxygen at 2 L /. He is routinely followed by [facility] at home and only has minimal ambulation noted at baseline. PAST MEDICAL HISTORY 1. COPD, end stage, on 2 L per recommendations /7. However, patient only uses on a p.r.n. basis. 2. Prior history of paroxysmal atrial fibrillation, on chronic anticoagulation. 3. Chronic pain syndrome. 4. Chronic narcotic dependence. 5. Spinal stenosis. 6. Chronic lymphedema bilateral lower extremities, followed by the [facility] as an outpatient. 7. Coronary artery disease, status post stent placement to RCA in 2003. Last cardiac catheterization 2013. Ejection fraction last noted approximately 50% to 55% in 2013. 8. Prior history of diastolic dysfunction. 9. B12 deficiency. 10. History of respiratory failure. 11. Admissions off and on secondary to benzodiazepine overdose as well as aspiration pneumonia. 12. Diabetes. 13. Obstructive sleep apnea. Recommended CPAP but noncompliant. 14. Chronic morbid obesity. Unit #: [id number] #: [id number] Patient: MATILDE POST 15. Chronic immobility syndrome. 16. Prior history of polyps from colon. 17. Gastritis. 18. Duodenitis. 19. Prior history of cholecystectomy. 20. Appendectomy. ALLERGIES Latex. HOME MEDICATIONS In review of previous discharge summary, they include: 1. Augmentin. 2. Imdur. 3. Daliresp. 4. Morphine sulfate 50 mg q.8. 5. Morphine ER 60 mg p.o. q.8. 6. Zestril. 7. Hydralazine. 8. Lipitor. 9. Cardizem. 10. Norvasc. 11. Xanax. 12. Zyrtec. 13. Coumadin. 14. Neurontin. 15. ProAir. 16. Prednisone. 17. Symbicort. REVIEW OF SYSTEMS Please see HPI. Twelve point otherwise negative except for those positives noted in the HPI. FAMILY HISTORY Coronary artery disease. SOCIAL HISTORY Resides at home alone. Lifelong tobacco abuse, approximately 90 pack-years. He quit smoking about three years ago. No alcohol use. Prior history of cocaine use and/or drug abuse in the past. PHYSICAL EXAMINATION VITAL SIGNS: Recent set of vitals - temperature 97.7, pulse 99, respiratory rate 12, blood pressure 134/89. GENERAL APPEARANCE: The patient is a morbidly obese 71-year-old male ling comfortably, in no acute distress. HEAD EXAM: Atraumatic, normocephalic. EAR EXAM: Tympanic membranes do not reveal any erythema or injection. NECK EXAM: Supple. CVS: S1, S2, irregular, irregular. RESPIRATORY EXAM: Diminished anteriorly, auscultated bilaterally. GI/ABDOMEN EXAM: Distended, nontender. EXTREMITIES: Lower extremity noted to be wrapped, chronic dressings in place. NEUROLOGICAL EXAM: The patient is A and O x3. DIAGNOSTIC STUDIES Unit #: [id number] #: [id number] Patient: MATILDE POST LABORATORY: Labs at the time of my admission include initial - cardiac enzymes set performed in the ER negative. INR 1.7. CBC showing white count 31.7, hemoglobin 13.7, lactic acid level 1.9. Initial urinalysis positive. Cultures currently pending. Lactic acid repeat 1.8. BNP 95, TSH 0.56. Repeat cardiac enzymes set negative. INITIAL ADMISSION DIAGNOSES 1. Atrial fibrillation with rapid ventricular response. 2. Acute respiratory failure, on chronic respiratory failure. 3. Acute exacerbation of chronic obstructive pulmonary disease. 4. End stage chronic obstructive pulmonary disease. 5. Coronary artery disease history with stent placement in right coronary artery. 6. Prior history of diastolic dysfunction. 7. Urinary tract infection with abnormal UA, culture pending. 8. Morbid obesity. 9. Chronic pain syndrome. 10. Chronic narcotic dependence. 11. Noncompliance. 12. Poor insight into chronic medical conditions. 13. Profound weakness, likely secondary to chronic respiratory failure, hypoxia as well as noncompliance with medication regimen. PLAN Admission. Cardiology consultation, pulmonary consultation. Discontinue vancomycin, discontinue tobramycin. Chest x-ray notes to be negative. Will keep on Zosyn for now. Await final urine culture, await blood cultures. Dr. Benito to see. In my opinion, the patient does not look acutely septic. Will DC sepsis protocol. Lactic acid is negative although white count level is elevated. He was recently admitted and placed on IV Solu-Medrol while he was here and given prescriptions for prednisone at time of discharge. Suspicion for pneumonia is low at this point in time but we will follow closely. Plans have been reviewed with patient in detail. Wound care nurse to evaluate the chronic lower extremity wounds. paperhanger pipe prognosis guarded at best secondary to patient's poor insight into disease process as well as his reluctance to decrease and/or discontinue his chronic pain medications. Patient is a Full Code. Dictated by Alexis Herrera/julius TD: 07/31/2016 09:00 JOB #: [id number] Unit #: [id number] #: [id number] Patient: MATILDE POST HISTORY AND PHYSICAL Page 1 of 1 X Nasrin Jean Baptiste MD HISTORY AND PHYSICAL
--- NOTE | ~2016-07-30 | EKG ---
PATIENT: MATILDE POST UNIT #: [id number] Ventricular Rate: 149 BPM Atrial Rate: 147 BPM QRS Duration: 132 ms Q-T Interval: 298 ms QTC Calculation(Bezet): 469 ms Calculated R [place]: -7 degrees Calculated T [place]: 43 degrees Diagnosis Line: Atrial fibrillation with rapid ventricular Diagnosis Line: response Diagnosis Line: Right bundle branch block Diagnosis Line: Abnormal ECG Diagnosis Line: No previous ECGs available Diagnosis Line: Confirmed by NADEGE STILES MD ([id number]) on 07/31/2016 Diagnosis Line: 10:09:30 PM INTERPRETING MD: GO YANG
--- NOTE | ~2016-07-30 | DS ---
Unit #: [id number] #: [id number] Patient: MATILDE POST [id number] [facility]. [place], [place] [address] [id number] I MR#: [id number] NAME: MATILDE POST. ROOM: 555 Age: 71 Sex: M Admission Date: 07/30/2016 : 1945 Discharge Date: 08/02/2016 Attending Physician: Nasrin Jean Baptiste M.D. Primary Care Physician: No Primary Care Physician DISCHARGE SUMMARY REASON FOR ADMISSION Acute respiratory failure, weakness, atrial fibrillation with RVR. HISTORY OF PRESENT ILLNESS/HOSPITAL COURSE The patient is a 71-year-old male with underlying history of end-stage COPD on home O2, noncompliant with an underlying history of paroxysmal atrial fibrillation, who presented with prolonged weakness as well as dyspnea. He was subsequently noted to have atrial fibrillation with RVR, as well as O2 saturations were decreased in the seventies and eighties. He was initially placed in the ICU. Consultation was placed to Cardiology Services. Dr. Pope and associates saw and evaluated the patient. He was initially started on sotalol 80 mg p.o. b.i.d. His Cardizem drip which had been initiated in the emergency room was later discontinued. His heart rate did decrease appropriately. It has remained rate controlled since that time. No further cardiac intervention was done this hospital admission. In regards to his acute respiratory failure and chronic respiratory disease, consultation was placed to Dr. Benito of Pulmonary Services who saw and evaluated the patient. Antibiotic regimen has yet to be determined at time of discharge. The patient has shown remarkable improvement while here. He was placed on vancomycin, Zosyn as well as Flagyl. Dr. Benito will see and evaluate the patient later this afternoon for final recommendations at time of discharge for antibiotic regimen. Ultimately, the patient's chronic pain syndrome to which the patient takes both long and short-acting morphine sulfate, may be contributing to his overall respiratory compromise. Once again, this was discussed with the patient. He stated that he will follow up with his pain management physician, Dr. Rodgers, in the morning. He would like to stay on his morphine sulfate ER 60 mg p.o. q.8 but he is agreeable to discontinue his short-acting 30 mg on a q.6 p.r.n. basis. This will certainly help in regards to his narcotic dependence as well as respiratory compromise of his overall pulmonary function. I also reinforced with him that he should wear his O2 via nasal cannula on a 24/7 basis. FINAL DISCHARGE DIAGNOSES 1. Acute on chronic respiratory failure. 2. End-stage COPD. 3. Atrial fibrillation with rapid ventricular response, now rated Unit #: [id number] #: [id number] Patient: MATILDE POST controlled. 4. Chronic anticoagulation. 5. Chronic pain syndrome. 6. Chronic narcotic dependence. 7. Spinal stenosis. 8. Traumatic spine injury. 9. Chronic bilateral lower extremity lymphedema followed by [facility] [place] [facility]. 10. Prior history of coronary artery disease. 11. Prior history of stent placement. 12. Diastolic dysfunction. 13. B12 deficiency. 14. Morbid obesity. 15. Noncompliance. 16. Diabetes. 17. Obstructive sleep apnea. 18. Chronic morbid obesity. 19. Chronic immobility syndrome. 20. Colon polyps. 21. Gastritis. 22. Duodenitis. FINAL DISCHARGE MEDICATIONS 1. Lipitor 40 mg p.o. q.h.s. 2. Sotalol 80 mg p.o. b.i.d. 3. Xanax 0.5 mg p.o. q.8 p.r.n. 4. Neurontin 400 mg p.o. b.i.d. 5. DuoNeb aerosol solution q.6 hours scheduled. 6. Symbicort 160/4.5 mcg two puffs b.i.d. 7. Coumadin 2 mg p.o. on Saturday, 6 mg on all remaining days. 8. Depakote 500 mg p.o. daily. 9. ProAir HFA one to two puffs q.[address] Benito to evaluate for antibiotic regimen at time of discharge. DISCHARGE CONDITION Stable. DISCHARGE DISPOSITION To home. Long-term prognosis guarded. Chance of readmission high. Dictated by... Nasrin Jean Baptiste M.D. SNEHAL/hernando TD: 08/03/2016 09:49 JOB #: [id number] Unit #: [id number] #: [id number] Patient: MATILDE POST DISCHARGE SUMMARY Page 1 of 1 X Nasrin Jean Baptiste MD DISCHARGE SUMMARY
--- NOTE | ~2016-07-30 | CO ---
Unit #: [id number] #: [id number] Patient: MATILDE POST 000030 [address] [place], [place] [address] [id number] I MR#: [id number] NAME: MATILDE POST. ROOM: 555 Age: 71 Sex: M Admission Date: 07/30/2016 : 1945 Attending Physician: Nasrin Jean Baptiste M.D. CONSULTATION REPORT REASON FOR CONSULTATION Atrial fibrillation with RVR. HISTORY OF PRESENT ILLNESS This is a 71-year-old male, who is followed in the office by Dr. Pope. He has past medical history of paroxysmal atrial fibrillation, on chronic anticoagulation with Coumadin; hypertension; COPD, on home oxygen therapy; known coronary artery disease with cardiac catheterization in 2003. The patient states he had angioplasty to the RCA, and however, there are no records currently available for review. He states he never had a stent placed, it sounds like plain old balloon angioplasty in 2003, also history of chronic pain syndrome with degenerative joint disease and spinal stenosis, on chronic opiate therapy, followed by Dr. Rodgers; chronic lymphedema; chronic diastolic CHF, last echo showed LVEF of 55% to 60% which was done in 2012, at that time, he had mild mitral regurgitation, RVSP is elevated at 30 to 40 mmHg. The patient presents secondary to complaints of feeling weak, nausea, and some mild chest tightness; however, this appears to occur with coughing. He denies any shortness of breath, PND, or exertional dyspnea. The patient did complain of some profuse sweatiness as well as a productive cough for the last few days and intermittent chills. He denies any reported fevers, however, he states he is unable to check this at home. Also denies he has not been around any sick contacts. On arrival to the emergency room, the patient was found to be in atrial fibrillation with RVR. EKG shows atrial fibrillation with RVR rate of 149 beats per minute, right bundle-branch block, nonspecific ST-T wave abnormality, QTc interval of 519 msec. Initial point of care troponin has been negative. It is also noted [place] [address] with a left shift noted. Chest x-ray shows stable cardiomegaly with mild chronic scarring or atelectasis in both lung bases. He currently has blood cultures which are pending. The patient has received a Cardizem bolus and has been started on a Cardizem drip. We are currently awaiting confirmation of his home medication reconciliation. At present, he denies any complaints of chest pain, shortness of breath, and is resting comfortably in bed. There is no family present at bedside. PAST MEDICAL HISTORY 1. Paroxysmal atrial fibrillation, on chronic anticoagulation with Coumadin. 2. Chronic pain syndrome with spinal stenosis, followed by Dr. Rodgers, on high-dose opiate therapy. Unit #: [id number] #: [id number] Patient: MATILDE POST 3. Chronic lymphedema bilaterally. 4. Known coronary artery disease, status post plain old balloon angioplasty of the RCA in 2003. 5. 2D echocardiogram in 2012 showed LVEF of 55% to 60%, mild MR, no effusion, RVSP of 30 to 40 mmHg. 6. B12 deficiency. 7. COPD, on home oxygen therapy, wears 2 L at home. 8. Obstructive sleep apnea, on CPAP. 9. Hypertension. 10. Hyperlipidemia. 11. Diabetes mellitus type 2. PAST SURGICAL HISTORY 1. Cholecystectomy. 2. Appendectomy. 3. EGD and colonoscopy in the past with history of polyp removal. ALLERGIES Latex. MEDICATIONS Currently, there is no med reconciliation list for review. According to the last discharge note from 07/22/2016, it appears that the patient was on Imdur 60 mg p.o. daily, Daliresp 500 mcg p.o. daily, morphine sulfate 15 mg p.o. t.i.d. p.r.n., morphine sulfate ER 60 mg p.o. q.8 hours, Zestril 10 mg p.o. daily, hydralazine 25 mg p.o. q.8 hours, Lipitor 40 mg p.o. q.h.s., Cardizem 30 mg p.o. q.8 hours, Norvasc 10 mg p.o. daily, Xanax 0.5 mg p.o. t.i.d. The patient was able to confirm that he takes Coumadin 6 mg p.o. daily except for Wednesdays which he takes 10 mg. Again, further confirmation of medication list from [facility] is pending. SOCIAL HISTORY The patient lives alone. He uses a walker for assist at home. He is a reformed tobacco user, quit approximately 3 years ago. Denies illicit drugs or alcohol. FAMILY HISTORY Positive for "heart trouble" in his father; however, he is not really sure of the extent or what exactly it was. Otherwise, negative for heart disease in his family. REVIEW OF SYSTEMS Positive for chronic lower extremity edema, chills, nausea, diarrhea which is now resolved as well as what was stated above in the HPI. PHYSICAL EXAMINATION GENERAL: This is a pleasant 71-year-old male, in no acute distress. VITAL SIGNS: Temperature 98.2, respiratory rate 18 to 22, pulse is 112 to 130s, blood pressure 129 to 130s over 70s to 90s, oxygen saturation is 97% on 2 L. HEENT: Pupils are equal and round. Pharynx; mucous membranes are moist. Dentition is poor. NECK: Trachea is midline. No lymphadenopathy. No thyromegaly. No JVD. Normal carotid upstrokes. CARDIOVASCULAR: S1, S2. No murmur, gallop, or rub. CHEST: Lungs are clear anteriorly to auscultation. Diminished in the Unit #: [id number] #: [id number] Patient: MATILDE POST. ABDOMEN: Obese, soft, nontender, nondistended. Bowel sounds are present in all 4 extremities. EXTREMITIES: The patient has Jose wraps bilaterally on both legs secondary to chronic lymph edema. Pulses are palpable. NEUROLOGIC: He is awake, alert, and oriented. He moves all extremities equally. He follows commands with ease. DIAGNOSTIC STUDIES LABORATORY RESULTS: Initial point of care troponin has been less than 0.05. Sodium 130, potassium 3.6, chloride 92, CO2 of 25, BUN 18, creatinine 1.0, blood glucose is 287. PT/INR 18.5 and INR 1.7. Hemoglobin 13.7, hematocrit 42.5, WBCs 31.7, and platelet count 327. Currently has a urinalysis, which is pending. Blood cultures which are pending. IMAGING STUDIES: Chest x-ray shows stable cardiomegaly with mild chronic scarring or atelectasis in bilateral lung bases. CARDIOVASCULAR STUDIES: EKG shows atrial fibrillation with RVR rate of 149 beats per minute, right bundle-branch block, nonspecific ST-T wave abnormalities, QTc interval of 519 msec. IMPRESSION 1. The patient admitted for weakness, chest tightness, cough, and chills. 2. Pneumonia. 3. Atrial fibrillation with rapid ventricular response. 4. Known coronary artery disease, status post plain old balloon angioplasty in the RCA in 2003. 5. Atrial fibrillation, on chronic anticoagulation with Coumadin. 6. Diabetes mellitus type 2. 7. Hypertension. 8. Hyperlipidemia. 9. Chronic pain syndrome with spinal stenosis, on chronic opiate therapy. Followed by Dr. Rodgers. PLAN We have been asked to see the patient secondary to atrial fibrillation with RVR. At this time, he has received a Cardizem boluses and is on Cardizem drip. We will plan to wean that and start the patient on Cardizem 60 mg p.o. q.6 hours with parameters. We will also start him on metoprolol 25 mg p.o. b.i.d. first dose now with parameters. The patient's INR is currently 1.7. We will resume his home dose of Coumadin per protocol. For now, the patient will be started on Lovenox 1 mg/kg subcu b.i.d., which will be discontinued when his INR is greater than 2. We will also trend serial enzymes with notification to call if the troponin is greater than 0.5. We will also check BNP and TSH to blood in lab. We will also get 2D echocardiogram. We will check lytes in the morning as well as repeat EKG. Further recommendations pending the outcome of 2D echocardiogram. The patient may need repeat Cardiolite stress testing in the future. Further recommendations pending Dr. Pope's assessment. Dictated by... Sonal Haq A.P.R.N. LMW/modl Unit #: [id number] #: [id number] Patient: MATILDE POST TD: 07/30/2016 23:49 JOB #: [id number] CONSULTATION REPORT Page 1 of 1 X Sonal Haq APRN X CONSULTATION REPORT
--- NOTE | ~2016-07-30 | CR63 ---
[facility] A Service of [facility] & [facility] RADIOLOGY TEXT RESULTS PATIENT: MATILDE POST LOCATION: [facility] 555-01 : [birth year] UNIT #: [id number] AGE: [address]: Nasrin Jean Baptiste MD SEX: M ORDER DR: [id number] [facility] [address] [place], [place] [address] [id number] MR#: [id number] Acc #: [id number] NAME: MAITLDE POST. : 1945 SEX: M STUDY DATE/TIME: 08/02/2016 7:21 UNIT: [facility] ROOM: [facility] STUDY DESCRIPTION: CR Chest 2 View Attending Physician: Nasrin Jean Baptiste M.D. Ordering Physician: Tony Benito M.D. Primary Care Physician: No Primary Care Physician MEDICAL IMAGING REPORT This report is preliminary unless electronic signature is present EXAM Chest x-ray, 08/02/2016. HISTORY Follow up pneumonia. TECHNIQUE AP and lateral upright chest series. FINDINGS The exam shows no change since 07/31/2016. Mild patchy left basilar infiltrate is stable. Lungs otherwise clear. PICC remains in good position. IMPRESSION Stable chest x-ray, unchanged since 07/31/2016. Dictated by... Sathya Esqueda M.D. THIS IS AN ELECTRONICALLY VERIFIED REPORT Sathya Esqueda M.D. at 08/02/2016 1:32 PM OBEYW/westley TD: 08/02/2016 09:13 JOB #: [id number] MEDICAL IMAGING REPORT Page 1 of 1 COPY
--- NOTE | ~2016-07-30 | CR72 ---
[facility] A Service of [facility] & [facility] RADIOLOGY TEXT RESULTS PATIENT: MATILDE POST [address] [birth year] UNIT #: [id number] AGE: [address]: Nasrin Jean Baptiste MD SEX: M ORDER DR: [id number] [facility] [address] [place], [place] [address] [id number] MR#: [id number] Acc #: [id number] NAME: MATILDE POST. : 1945 SEX: M STUDY DATE/TIME: 07/30/2016 05:28 UNIT: [facility] ROOM: [id number] STUDY DESCRIPTION: CR Chest Single View Portable Attending Physician: Nasrin Jean Baptiste M.D. Ordering Physician: Simon Boyd M.D. Primary Care Physician: Primary Care Physician No MEDICAL IMAGING REPORT This report is preliminary unless electronic signature is present EXAM Portable chest, 07/30 at 05:28 INDICATION Atrial fibrillation, nausea and weakness for 2 days. History of hypertension. FINDINGS AP portable chest is compared with 07/20/2016 and 09/08/2015. Cardiomegaly is stable. There is some chronic scarring or atelectasis in the bases. The lungs otherwise are clear. No pneumothorax is seen. IMPRESSION Stable cardiomegaly with mild chronic scarring or atelectasis in both lung bases. Dictated by... Panda Greene Jr., M.D. THIS IS AN ELECTRONICALLY VERIFIED REPORT Panda Greene Jr., M.D. at 07/30/2016 11:16 AM LINCOLN/josé miguel TD: 07/30/2016 09:07 JOB #: [id number] MEDICAL IMAGING REPORT Page 1 of 1 COPY
[~2016-07-30 05:18] MED LIST changes: +ALLERGY RELIEF10 M6 PO; +AMARYL2 MG PO; +AMLODIPINE BESY10 MG PO; +DALIRESP500 MCG PO; +DILTIAZEM HCL30 MG PO; +IMDUR-ER60 M2 PO; +KLONOPIN0.5 MG PO; +LIPITOR40 MG PO; +MSIR15 MG PO; +PRINIVIL10 MG PO; +PROAIR HFA8.5 GM INH
[2016-07-30 05:22] LABS: BASOPHIL# 0.1 X10e3 (0-0.3); BASOPHIL% 0.3 % (0-2.5); EOSINOPHIL# 0.1 X10e3 (0-0.7); EOSINOPHIL% 0.3 % (0.0-7.0); HEMATOCRIT 42.5 % (38.0-50.0); HEMOGLOBIN 13.7 gm/dL (13.0-16.0); LYMPHOCYTE# 1.9 X10e3 (1.0-3.5); LYMPHOCYTE% 5.9 % (17.0-45.0); MEAN CELL VOLUME 84.8 FL (83-96); MEAN CORPUSCULAR HEMOGLOBIN 27.4 PG (28-34); MEAN CORPUSCULAR HGB CONC 32.3 g/dL (30-36); MEAN PLATELET VOLUME 8.4 FL (6.5-11.5); MONOCYTE# 1.8 X10e3 (0-1.0); MONOCYTE% 5.8 % (3.0-12.0); NEUTROPHIL# 27.7 X10e3 (1.5-7.1); NEUTROPHIL% 87.7 % (40-75); PLATELET COUNT 327 X10e3 (140-420); RED BLOOD COUNT 5.01 X10e (3.90-5.60); RED CELL DISTRIBUTION WIDTH 16.2 % (11.0-15.5); WHITE BLOOD COUNT 31.7 X10e3 (4.0-10.5)
[2016-07-30 05:23] LABS: POC - CKMB <1.0 ng/mL (0.0-7.9); POC - TROPONIN <0.05 ng/mL (<=0.05)
[2016-07-30 05:24] LABS: DIFF IND YES
[2016-07-30 05:31] LABS: INR 1.7
[2016-07-30 05:40] LABS: ANISOCYTOSIS SL; NUCLEATED RED BLOOD CELL 1 /100 ([, 0]); PLATELET ESTIMATE NORMAL (NORMAL); PROTHROMBIN TIME (PATIENT) 18.5 SECONDS (9.6-11.5)
[2016-07-30 05:46] LABS: ALBUMIN SERUM 3.7 g/dL (3.5-5.0); BILIRUBIN, DIRECT 0.2 mg/dL (0.0-0.2); BILIRUBIN,INDIRECT 0.9 mg/dL (0.0-0.9); BILIRUBIN,TOTAL 1.1 mg/dL (0.2-2.0); CALCIUM SERUM 8.9 mg/dL (8.4-10.2); GLOM FILT RATE Estimated 75.9 mL/min (>60); POTASSIUM 3.6 mmol/L (3.5-5.1); PROTEIN TOTAL SERUM 7.4 g/dL (6.0-8.3)
[2016-07-30 08:16] LABS: URINE SOURCE CLEAN CATCH
[2016-07-30 08:32] LABS: URINE APPEARANCE CLEAR; URINE BILIRUBIN NEG (NEG); URINE BLOOD NEG (NEG); URINE COLOR YELLOW; URINE GLUCOSE 250 MG/DL (NEG); URINE KETONE NEG (NEG); URINE LEUKOCYTE ESTERASE 1+ (NEG); URINE NITRATE NEG (NEG); URINE PH 6.5 (5-8); URINE PROTEIN 1+ (NEG); URINE SPECIFIC GRAVITY 1.014 (1.003-1.035); URINE UROBILINOGEN 0.2 MG/DL (NEG)
[2016-07-30 08:35] LABS: CULTURE INDICATED? YES; U HYALINE CASTS AUWI 0-2 /[LPF]; URBCS1 AUWI 0-2 /[HPF] (0-2); URINE BACTERIA AUWI NEG (NEGATIVE); URINE SQUAMOUS EPITHELIAL CELL OCC /[HPF]
[2016-07-30 08:53] LABS: URINE YEAST PRESENT
[2016-07-30 10:06] LABS: POC - CKMB <1.0 ng/mL (0.0-7.9); POC - TROPONIN <0.05 ng/mL (<=0.05)
[2016-07-30] MEDS ORDERED: COUMADIN6 MG PO (11:08)
[2016-07-30] MEDS ORDERED: MS CONTIN30 MG PO (11:11)
[2016-07-30] MEDS ORDERED: IMDUR-ER30 M1 PO (11:12)
[2016-07-30] MEDS ORDERED: LASIX PO (11:14)
[2016-07-30] MEDS ORDERED: SOTALOL AF80 M1 PO (11:15)
[2016-07-30 16:45] LABS: CK TOTAL 19 IU/L (36-174)
[2016-07-30 21:54] LABS: CK TOTAL 5 IU/L (36-174)
[2016-07-30 23:24] LABS: MAGNESIUM 1.8 mg/dL (1.6-3.0); POTASSIUM 3.4 mmol/L (3.5-5.1)
[2016-07-31 05:52] LABS: INR 2.1; PROTHROMBIN TIME (PATIENT) 22.8 SECONDS (9.6-11.5)
[2016-07-31 06:11] LABS: BASOPHIL# 0.1 X10e3 (0-0.3); BASOPHIL% 0.3 % (0-2.5); EOSINOPHIL# 0.1 X10e3 (0-0.7); EOSINOPHIL% 0.5 % (0.0-7.0); HEMATOCRIT 38.3 % (38.0-50.0); LYMPHOCYTE# 1.8 X10e3 (1.0-3.5); LYMPHOCYTE% 9.3 % (17.0-45.0); MEAN CELL VOLUME 86.6 FL (83-96); MEAN CORPUSCULAR HEMOGLOBIN 27.3 PG (28-34); MEAN CORPUSCULAR HGB CONC 31.5 g/dL (30-36); MEAN PLATELET VOLUME 8.7 FL (6.5-11.5); MONOCYTE# 1.3 X10e3 (0-1.0); MONOCYTE% 6.8 % (3.0-12.0); NEUTROPHIL# 16.1 X10e3 (1.5-7.1); NEUTROPHIL% 83.1 % (40-75); PLATELET COUNT 246 X10e3 (140-420); RED BLOOD COUNT 4.42 X10e (3.90-5.60); RED CELL DISTRIBUTION WIDTH 16.3 % (11.0-15.5); WHITE BLOOD COUNT 19.4 X10e3 (4.0-10.5)
[2016-07-31 06:49] LABS: DIFF IND NO
[2016-07-31 07:47] LABS: BUN/CREATININE RATIO 16.66; CALCIUM SERUM 8.5 mg/dL (8.4-10.2); CREATININE SERUM 0.9 mg/dL (0.6-1.4); GLOM FILT RATE Estimated 86.2 mL/min (>60); MAGNESIUM 1.9 mg/dL (1.6-3.0); POTASSIUM 3.7 mmol/L (3.5-5.1)
[2016-08-01 07:28] LABS: HEMATOCRIT 33.3 % (38.0-50.0); HEMOGLOBIN 10.6 gm/dL (13.0-16.0); MEAN CELL VOLUME 86.9 FL (83-96); MEAN CORPUSCULAR HEMOGLOBIN 27.7 PG (28-34); MEAN CORPUSCULAR HGB CONC 31.9 g/dL (30-36); MEAN PLATELET VOLUME 8.3 FL (6.5-11.5); RED BLOOD COUNT 3.83 X10e (3.90-5.60); RED CELL DISTRIBUTION WIDTH 15.7 % (11.0-15.5); WHITE BLOOD COUNT 10.9 X10e3 (4.0-10.5)
[2016-08-01 07:42] LABS: INR 2.1; PROTHROMBIN TIME (PATIENT) 23.1 SECONDS (9.6-11.5)
[2016-08-01 08:12] LABS: BUN/CREATININE RATIO 16.25; CALCIUM SERUM 8.2 mg/dL (8.4-10.2); CREATININE SERUM 0.8 mg/dL (0.6-1.4); GLOM FILT RATE Estimated 90.5 mL/min (>60)
[2016-08-02 05:40] LABS: HEMATOCRIT 32.7 % (38.0-50.0); HEMOGLOBIN 10.7 gm/dL (13.0-16.0); MEAN CORPUSCULAR HGB CONC 32.6 g/dL (30-36); MEAN PLATELET VOLUME 8.1 FL (6.5-11.5); RED BLOOD COUNT 3.8 X10e (3.90-5.60); RED CELL DISTRIBUTION WIDTH 16.1 % (11.0-15.5); WHITE BLOOD COUNT 10.2 X10e3 (4.0-10.5)
[2016-08-02 05:41] LABS: INR 2.4
[2016-08-02 06:13] LABS: CALCIUM SERUM 8.3 mg/dL (8.4-10.2); CREATININE SERUM 0.8 mg/dL (0.6-1.4); GLOM FILT RATE Estimated 90.5 mL/min (>60); MAGNESIUM 2.1 mg/dL (1.6-3.0); POTASSIUM 4.1 mmol/L (3.5-5.1)
[2016-08-02] MEDS ORDERED: FLAGYL250 MG PO (12:47)
== END 2016-08-02 14:31 | disposition home or self-care (01) | DRG 189 ==
LOC: CED 05:18 → CEDOF 07:50 → CICCU3 10:23 → C5B 18:30
PROVIDERS: Emergency Medicine; Family Medicine; Internal Medicine Cardiovascular Disease; Physician Assistant Medical
PROC: 02HV33Z Insertion of Infusion Device into Superior Vena Cava, Percutaneous Approach (ICD-10-PCS; principal; 2016-07-30)
PROC: B24BYZZ Ultrasonography of Heart with Aorta using Other Contrast (ICD-10-PCS; 2016-07-30)
DX: J96.21 Acute and chronic respiratory failure with hypoxia (principal); J18.9 Pneumonia, unspecified organism; Z99.81 Dependence on supplemental oxygen; E11.9 Type 2 diabetes mellitus without complications; N39.0 Urinary tract infection, site not specified; I48.0 Paroxysmal atrial fibrillation; J44.1 Chronic obstructive pulmonary disease with (acute) exacerbation; F11.20 Opioid dependence, uncomplicated; D72.829 Elevated white blood cell count, unspecified; R53.1 Weakness; Z79.01 Long term (current) use of anticoagulants; G89.4 Chronic pain syndrome; I89.0 Lymphedema, not elsewhere classified; I25.10 Atherosclerotic heart disease of native coronary artery without angina pectoris; G47.33 Obstructive sleep apnea (adult) (pediatric); Z91.19 Patient's noncompliance with other medical treatment and regimen; M62.3 Immobility syndrome (paraplegic); E66.01 Morbid (severe) obesity due to excess calories; Z86.010 Personal history of colon polyps; Z90.49 Acquired absence of other specified parts of digestive tract; E53.8 Deficiency of other specified B group vitamins; M48.00 Spinal stenosis, site unspecified; Z91.040 Latex allergy status; R19.7 Diarrhea, unspecified; I45.10 Unspecified right bundle-branch block; K29.70 Gastritis, unspecified, without bleeding; K29.80 Duodenitis without bleeding; Z68.39 Body mass index [BMI] 39.0-39.9, adult
CPT/HCPCS: 36415; 71010; 71020; 80048; 80076; 81003; 82308; 82550; 82553; 82947; 83605; 83735; 83880; 84132; 84443; 84484; 85025; 85027; 85610; 87040; 87070; 87086; 93005; 93306; 94010; 94640; 94760; 96365; 96366; 96375; 97162; 97166; 99291; G8978-GP; G8979-GP; G8980-GP; G8987-GO; G8988-GO; G8989-GO; J1650; J1815; J2405; J2543; J3260; J3370; J3475